=== PATIENT | male | born 1975 | race Caucasian/White ===

== ENCOUNTER → 2019-09-22 15:23 | Outpatient (BNVA) | payer OTHER, SELFPAY | PROVIDERS: Family Provider Nurse Practitioner Family; PCP Nurse Practitioner Family; Referring Provider Nurse Practitioner Family; Visit Provider Otolaryngology | DX: J32.9 Chronic sinusitis, unspecified (principal); J34.2 Deviated nasal septum; J34.3 Hypertrophy of nasal turbinates; J31.0 Chronic rhinitis; T48.5X5A Adverse effect of other anti-common-cold drugs, initial encounter; X58.XXXA Exposure to other specified factors, initial encounter; F17.210 Nicotine dependence, cigarettes, uncomplicated | CPT/HCPCS: 99204; 99214 ==

== ENCOUNTER 2019-09-29 10:54 | Outpatient (CLI) | payer OTHER, SELFPAY ==
--- NOTE | 2019-09-29 11:00 | CT_ITS ---
WS: [id number] CT scan of the sinuses without IV contrast. Additional two-dimensional coronal and sagittal reconstru ction was performed. 09/29/2019 Clinical Data: sinusitis Comparison: None. DLP: 525.[address] scans at [facility] use at least one of these dose optimization techniques: automat ed exposure control; mA and/or kV adjustment per patient size (includes targeted exams where dose is matched to clinical indication); or iterative reconstruction. Findings: The sinus cavities are clear with no air-fluid levels or bone destruction. There is minimal posterior mucoperiosteal thickening of the right maxillary sinus. The orbits are intact. The nasal bones show only slight anterior deformity perhaps a result of the old nasal bone fracture. The intraorbital cont ents are unremarkable. The sella turcica is normal. CT/CT sinus wo con* [id number] Impression: 1. Minimal mucoperiosteal thickening of the right maxillary sinus. 2. 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
== END 2019-09-29 10:55 | disposition home or self-care (01) ==
LOC: RAD 11:00
PROVIDERS: Family Provider Nurse Practitioner Family; PCP Nurse Practitioner Family; Visit Provider Otolaryngology
DX: J32.9 Chronic sinusitis, unspecified (principal); M95.0 Acquired deformity of nose
CPT/HCPCS: 70486

== ENCOUNTER → 2019-10-12 14:45 | Outpatient (BNVA) | payer OTHER, SELFPAY | PROVIDERS: Family Provider Nurse Practitioner Family; PCP Nurse Practitioner Family; Visit Provider Otolaryngology | DX: J32.9 Chronic sinusitis, unspecified (principal); J34.2 Deviated nasal septum; J34.3 Hypertrophy of nasal turbinates; J31.0 Chronic rhinitis; T48.5X5A Adverse effect of other anti-common-cold drugs, initial encounter; X58.XXXA Exposure to other specified factors, initial encounter; F17.220 Nicotine dependence, chewing tobacco, uncomplicated | CPT/HCPCS: 99213; 99214 ==

== ENCOUNTER → 2020-07-02 11:08 | Outpatient (BNVA) | payer OTHER, SELFPAY | PROVIDERS: Family Provider Nurse Practitioner Family; PCP Nurse Practitioner Family | DX: Z11.59 Encounter for screening for other viral diseases (principal) | CPT/HCPCS: 87635 ==

== ENCOUNTER 2020-09-02 09:27 | Outpatient (CLI) | payer OTHER, SELFPAY ==
[2020-09-02 10:15] LABS: Basophils % 0.6 %; Eosinophils # 0.1 10^3/uL (0.0-0.8); Eosinophils % 2.1 %; Hematocrit 49.1 % (42.0-52.0); Hemoglobin 16.3 g/dL (11.7-16.6); Lymphocytes # 2.4 10^3/uL (0.8-4.8); Mean Corpuscular HGB Conc 33.2 g/dL (30.0-36.0); Mean Corpuscular Hemoglobin 30.8 pg (28.0-34.0); Mean Corpuscular Volume 92.6 fL (80-94); Mean Platelet Volume 9.6 fL (7.4-10.4); Monocytes # 0.5 10^3/uL (0.2-0.9); Monocytes % 7.7 %; Neutrophils # 3.52 10^3/uL (1.8-7.7); Neutrophils % 53.4 %; Nucleated Red Blood Cells % 0 %; Platelet Count 272 10^3/cmm (130-400); White Blood Count 6.6 10^3/uL (4.0-10.0)
[2020-09-02 10:35] LABS: Alanine Aminotransferase 79 U/L (0-41); Albumin Level 4.5 g/dL (3.5-5.2); Alkaline Phosphatase 65 IU/L (40-130); Anion Gap 12.5 (5-19); Aspartate Amino Transferase 38 U/L (0-40); Blood Urea Nitrogen 11 mg/dL (6-20); Carbon Dioxide 30 mmol/L (22-29); Chloride 103 mmol/L (98-107); Globulin 2.9 g/dL (1.3-4.6); Glomerular Filtration Rate 91.7 mL/min (90-130); Glucose 98 mg/dL (65-115); Osmolality Calculated 291 mOsm/kg (285-295); Potassium 4.5 mmol/L (3.5-5.1); Sodium 141 mmol/L (136-145); Total Bilirubin 1.1 mg/dL (0.15-1.2); Total Protein 7.4 g/dL (6.6-8.7)
[2020-09-02 12:35] LABS: HIV 1 & 2 Antibody Non-Reactive (Non-Reactiv); HIV 1 & 2 Antigen Non-Reactive (Non-Reactiv)
[2020-09-02 14:24] LABS: Hepatitis A Antibody IgM Non-Reactive (Nonreactive); Hepatitis B Core AB, Total Non-Reactive (Nonreactive); Hepatitis B Surface Antigen Non-Reactive (Nonreactive)
[2020-09-02 14:43] LABS: Hepatitis B Surface AB 29.7 (0-8.5); Hepatitis C Virus Antibody Reactive (Nonreactive)
[2020-09-05 14:13] LABS: Quantiferon Mitogen >10.00 IU/mL; Quantiferon Nil 0.03 IU/mL; Quantiferon Plus TB2 0.02 IU/mL; Quantiferon TB Gold NEGATIVE (NEGATIVE)
== END 2020-09-02 09:28 | disposition home or self-care (01) ==
PROVIDERS: PCP Nurse Practitioner Family; Visit Provider Dermatology
DX: Z79.899 Other long term (current) drug therapy (principal); L40.0 Psoriasis vulgaris
CPT/HCPCS: 80053; 85025; 86480; 86705; 86706; 86709; 86803; 87340; 87806

== ENCOUNTER 2022-10-22 09:36 | Outpatient (CLI) | payer OTHER, SELFPAY ==
[2022-10-22 10:35] LABS: Basophils # 0.1 10^3/uL (0.0-0.1); Eosinophils # 0.1 10^3/uL (0.0-0.8); Eosinophils % 1.2 %; Hematocrit 45.6 % (42.0-52.0); Hemoglobin 15.6 g/dL (11.7-16.6); Lymphocytes # 1.9 10^3/uL (0.8-4.8); Mean Corpuscular HGB Conc 34.2 g/dL (30.0-36.0); Mean Corpuscular Hemoglobin 31.2 pg (28.0-34.0); Mean Corpuscular Volume 91.2 fl (80-94); Mean Platelet Volume 9.6 fL (7.4-10.4); Monocytes # 0.4 10^3/uL (0.2-0.9); Monocytes % 6.9 %; Neutrophils # 3.46 10^3/uL (1.8-7.7); Neutrophils % 58.4 %; Nucleated Red Blood Cells % 0 %; Platelet Count 276 10^3/cmm (130-400); Red Cell Distribution Width 12.2 % (12.1-15.1); White Blood Count 5.9 10^3/uL (4.0-10.0)
[2022-10-22 10:50] LABS: Alanine Aminotransferase 43 U/L (0-41); Albumin Level 4.4 g/dL (3.5-5.2); Alkaline Phosphatase 67 U/L (40-130); Anion Gap 13.2 (5-19); Aspartate Amino Transferase 32 U/L (0-40); Blood Urea Nitrogen 9 mg/dL (6-20); Carbon Dioxide 26 mmol/L (22-29); Chloride 105 mmol/L (98-107); Globulin 2.9 g/dL (1.3-4.6); Glomerular Filtration Rate 103.6 mL/min (90-130); Glucose 100 mg/dL (65-115); Osmolality Calculated 289 mOsm/kg (285-295); Potassium 4.2 mmol/L (3.5-5.1); Sodium 140 mmol/L (136-145); Total Bilirubin 1.1 mg/dL (0.15-1.2); Total Protein 7.3 g/dL (6.6-8.7)
[2022-10-22 11:10] LABS: HIV 1 & 2 Antibody Non-Reactive (Non-Reactiv); HIV 1 & 2 Antigen Non-Reactive (Non-Reactiv)
[2022-10-22 11:20] LABS: Hepatitis A Antibody IgM Non-Reactive (Nonreactive); Hepatitis B Core AB, Total Non-Reactive (Nonreactive); Hepatitis B Surface AB 22.6 (11.5-1000); Hepatitis B Surface Antigen Non-Reactive (Nonreactive)
[2022-10-22 11:51] LABS: Hepatitis C Virus Antibody Reactive (Nonreactive)
[2022-10-23 23:19] LABS: HEP C RNA Viral Load Quant <1.18 NOT DETECTED Log IU/mL (NOT DETECTED); HEP C RNA Viral Load Quant <15 NOT DETECTED IU/mL (NOT DETECTED)
[2022-10-24 14:29] LABS: Quantiferon Mitogen >10.00 IU/mL; Quantiferon Nil 0.02 IU/mL; Quantiferon TB Gold NEGATIVE (NEGATIVE)
== END 2022-10-22 09:37 | disposition home or self-care (01) ==
LOC: LAB 09:39
PROVIDERS: PCP Nurse Practitioner Family; Visit Provider Nurse Practitioner Family
DX: L40.0 Psoriasis vulgaris (principal); L40.50 Arthropathic psoriasis, unspecified; Z79.899 Other long term (current) drug therapy
CPT/HCPCS: 36415; 80053; 85025; 86480; 86705; 86706; 86709; 86803; 87340; 87522; 87806